=== PATIENT | female | born 1955 | race Caucasian/White ===

== ENCOUNTER 2023-06-14 10:01 | Emergency (ER) | payer MEDICARE, SELFPAY ==
[2023-06-14 10:17] VITALS: BP 130/65; PULSE 65; RESP 18; TEMP 36.6; O2SAT 100
--- NOTE | 2023-06-14 10:33 | ED.FEMALEGU ---
HPI - Female Genitourinary General Chief complaint: Urogenital-Female Stated complaint: Urinary Problems Time Seen by Provider: 06/14/23 10:36 Source: patient and RN notes reviewed Mode of arrival: ambulatory Limitations: no limitations History of Present Illness HPI Narrative: 68 y/o female with hx UTI presented for c/o concern for UTI. Reports urinary frequency, burning, decreased output, and cloudy appearance. Onset last night. Denies hematuria, nausea, vomiting, abdominal pain, flank pain, constipation, diarrhea, fevers or chills. Related Data Home Medications Medication Instructions Recorded Confirmed alendronate 70 mg tablet mg PO 06/14/23 amitriptyline 25 mg tablet mg 06/14/23 atorvastatin 20 mg tablet mg 06/14/23 cetirizine 10 mg tablet (Zyrtec) 10 mg PO DAILY 06/14/23 06/14/23 cyclobenzaprine 10 mg tablet mg 06/14/23 estradiol 10 mcg vaginal insert mcg vaginal 06/14/23 (Imvexxy Maintenance Pack) fludrocortisone 0.1 mg tablet mg 06/14/23 hydrocortisone 5 mg tablet mg 06/14/23 hydroxychloroquine 200 mg tablet mg PO 06/14/23 mycophenolate sodium 360 mg mg PO 06/14/23 tablet,delayed release omeprazole 40 mg capsule,delayed mg 06/14/23 release pregabalin 25 mg capsule mg 06/14/23 Allergies Allergy/AdvReac Type Severity Reaction Status Date / Time ceftriaxone Allergy Unknown Unknown Verified 06/14/23 10:27 gabapentin Allergy Unknown Verified 06/14/23 10:27 methenamine Allergy Unknown Verified 06/14/23 10:27 nitrofurantoin Allergy Unknown Verified 06/14/23 10:27 [From Macrobid] sulfur dioxide Allergy Unknown Verified 06/14/23 10:27 ciprofloxacin AdvReac Joint Pain Verified 06/14/23 10:51 TAPE Allergy Mild Unknown Uncoded 06/14/23 10:27 Review of Systems Review of Systems: CONSTITUTIONAL: Denies body aches, fever, chills, or sweats. CARDIOVASCULAR: Denies chest pain, palpitations, or edema. RESPIRATORY: Denies cough or dyspnea. GASTROINTESTINAL: Denies abdominal pain, nausea, vomiting, or diarrhea. GENITOURINARY: Reports dysuria, frequency, urgency, denies hematuria, flank pain SKIN: Denies rash, itching, or wounds. MUSCULOSKELETAL: Denies back pain or myalgia. [facility] Family History Family History Father Family history of Alzheimer's disease Social History Social History Smoking status: Former smoker Alcohol intake: current Comments At time of signature, I have reviewed and agree with nursing past medical, surgical, social and family history unless otherwise noted. Please see nursing chart for further information. There is no relevant family history pertinent to the presenting complaint Exam Narrative: GENERAL: Well-appearing ENT: Mucous membranes pink and moist. NECK: Normal AROM. Supple. CHEST: No respiratory distress. Clear to auscultation. HEART: Regular rate and rhythm. ABDOMEN: Soft, nontender, nondistended, normal active bowel sounds. No CVA tenderness SKIN: Warm, dry, no rash. NEURO: No focal deficits. Alert and oriented x3. Gait steady. PSYCH: Normal affect. Course Course Emergency Course: Patient is aware of diagnosis, understands and agrees to treatment plan. Anticipatory guidance given. Patient agrees to follow-up as directed and is aware of reasons to seek care at the emergency department. Portions of this record may have been created with voice recognition software Level of Care: Express Care Visit Vital Signs Vital signs: Vital Signs Temperature 97.8 F 06/14/23 10:17 Pulse Rate 65 06/14/23 10:17 Respiratory Rate 18 06/14/23 10:17 Blood Pressure 130/65 06/14/23 10:17 Pulse Oximetry 100 06/14/23 10:17 Oxygen Delivery Room Air 06/14/23 10:17 Temperature 97.8 F 06/14/23 10:17 Pulse Rate 65 06/14/23 10:17 Respiratory Rate 18 06/14/23 10:17 Blood Pressure 130/65 06/14/23 10:
== END 2023-06-14 10:54 | disposition home or self-care (01) ==
PROVIDERS: Emergency Provider Nurse Practitioner Family
DX: N39.0 Urinary tract infection, site not specified (principal); Z87.891 Personal history of nicotine dependence; K21.9 Gastro-esophageal reflux disease without esophagitis; M19.90 Unspecified osteoarthritis, unspecified site; M32.9 Systemic lupus erythematosus, unspecified; N80.9 Endometriosis, unspecified; Z86.61 Personal history of infections of the central nervous system
CPT/HCPCS: 81003; 87086; 87088; 99213; G0463